=== PATIENT | female | born 1990 | race American Indian/Alaskan Native ===

== ENCOUNTER 2022-04-26 13:35 | Inpatient (IN) | payer OTHER, SELFPAY ==
[2022-04-26] MEDS ORDERED: hydrALAZINE 20 MG/ML VIAL SLOW IVP PRN ×2 (14:07→22:21)
[2022-04-26 14:55] VITALS: BMI 22.6
[2022-04-26 15:12] LABS: SARS-CoV-2 NAA Rapid Test DETECTED (NotDetected)
[2022-04-26] MEDS ORDERED: Acetaminophen/Codeine 30-300mg Tablet PO SCH (17:00)
[2022-04-26] MEDS ORDERED: Acetaminophen/Codeine 30-300mg Tablet PO PRN (22:21)
[2022-04-26] MEDS ORDERED: Butorphanol Tartrate 1 MG/ML VIAL SLOW IVP PRN (22:21)
[2022-04-26] MEDS ORDERED: Promethazine HCl 25 MG/ML VIAL IM PRN (22:21)
[2022-04-26] MEDS ORDERED: Ibuprofen 800 MG TAB PO PRN (22:21)
[2022-04-26] MEDS ORDERED: Lidocaine 1% (PF) 30 ML VIAL SC PRN (22:21)
[2022-04-26] MEDS ORDERED: HYDROcodone/Acetaminophen 5/325 mg Tablet PO PRN (22:21)
[2022-04-26] MEDS ORDERED: Ondansetron PF 4 MG/2 ML Vial IVP PRN (22:21)
[2022-04-26] MEDS ORDERED: NS w/ Oxytocin 30 units 500 ML IV SCH (22:30)
[2022-04-26 23:31] LABS: Hemoglobin 10.5 g/dL (12.0-15.5); Mean Corpuscular Hemoglobin 28.7 pg (27.0-33.0); Mean Corpuscular Volume 84.4 fl (81.6-98.3); Mean Platelet Volume 9.6 fl (7.4-10.4); Platelet Count 203 10x3/uL (150-450); RBC Distribution Width 13.1 % (11.5-14.5); Red Blood Cell (RBC) Count 3.66 10x6/uL (3.90-5.03); White Blood Cell (WBC) Count 3.7 10x3/uL (3.5-10.5)
[2022-04-26 23:55] LABS: Hep B Surf Ag Non-Reactive S/CO (NonReactive); Syphilis Antibody Nonreactive (Nonreactive); Syphilis Antibody Index 0.03 S/CO (<1.00 Non-Reactive)
[2022-04-26] MEDS: Lactated Ringer's 1,000 ML IV SCH (23:59)
[2022-04-27 00:18] LABS: HBSAg Index 0.22 S/CO (0-0.99)
[2022-04-27] MEDS ORDERED: Penicillin G Potassium 5 MILL.UNITS VIAL ONE (07:24)
[2022-04-27] MEDS: Lactated Ringer's 1,000 ML IV SCH ×2 (07:31→11:47)
[2022-04-27] MEDS ORDERED: Fentanyl 2 mcg/Bup 0.1% Cadd 100 ML ONE (09:09)
[2022-04-27] MEDS ORDERED: Lactated Ringer's 500 ML IV PRN (09:45)
[2022-04-27] MEDS ORDERED: Promethazine HCl 25 MG/ML VIAL IM PRN ×2 (09:45→19:32)
[2022-04-27] MEDS ORDERED: Ondansetron PF 4 MG/2 ML Vial IVP PRN ×2 (09:45→19:32)
[2022-04-27] MEDS ORDERED: Naloxone HCl 0.4 mg/ml Vial IVP PRN ×2 (09:45)
[2022-04-27] MEDS ORDERED: diphenhydrAMINE 50 MG/ML VIAL IVP PRN (09:45)
[2022-04-27] MEDS ORDERED: Moisturizing Cream (Eucerin) 113 GM JAR TOP PRN (09:45)
[2022-04-27] MEDS ORDERED: ePHEDrine Sulfate 50 MG/10 ML VIAL SLOW IVP PRN (09:45)
[2022-04-27] MEDS ORDERED: Communication Order-Pharmacy FS SCH (09:45)
[2022-04-27] MEDS ORDERED: Acetaminophen 325 MG TAB PO PRN (09:45)
[2022-04-27] MEDS ORDERED: Fentanyl 2 mcg/Bupivacaine 0.1% Cassette 100 ML EPIDURAL SCH (09:45)
[2022-04-27] MEDS ORDERED: Lidocaine 1% (PF) 30 ML VIAL SC PRN (10:49)
[2022-04-27] MEDS ORDERED: NS w/ Oxytocin 30 units 500 ML IV SCH ×2 (11:00→20:30)
[2022-04-27] MEDS ORDERED: Penicillin G Potassium 5 MILL.UNITS in Sodium Chloride 0.9% 100 ML IVPB SCH (11:00)
[2022-04-27] MEDS: Penicillin G 2.5 MILL.units 2.5 MILL.UNITS in Premix Bag 1 BAG IVPB SCH ×2 (11:29→19:44)
[2022-04-27] MEDS ORDERED: Milk Of Magnesia 30 ML UDCUP PO PRN (19:32)
[2022-04-27] MEDS ORDERED: Boostrix 0.5 ML (Tdap) VIAL IM ONE (19:32)
[2022-04-27] MEDS ORDERED: Bisacodyl 10 MG SUPP PR PRN (19:32)
[2022-04-27] MEDS ORDERED: Acetaminophen/Codeine 30-300mg Tablet PO PRN (19:32)
[2022-04-27] MEDS ORDERED: hydrALAZINE 20 MG/ML VIAL SLOW IVP PRN (19:32)
[2022-04-27] MEDS ORDERED: Lanolin Ointment 7 GM TUBE TOP PRN (19:32)
[2022-04-27] MEDS ORDERED: diphenhydrAMINE 25 MG CAP PO PRN (19:32)
[2022-04-27] MEDS ORDERED: Benzocaine-Menthol 82.5 ML CAN TOP PRN (19:32)
[2022-04-27] MEDS ORDERED: Zolpidem Tartrate 5 MG TAB PO PRN (19:32)
[2022-04-27] MEDS ORDERED: Preparation H Ointment 28 GM TUBE PR PRN (19:32)
[2022-04-27] MEDS ORDERED: Ferrous Sulfate 325 MG TAB PO SCH (20:30)
[2022-04-27] MEDS: Ibuprofen 800 MG TAB PO SCH (20:53)
[2022-04-27] MEDS: Docusate 100 MG CAP PO SCH (20:53)
[2022-04-28] MEDS: Acetaminophen/Codeine 30-300mg Tablet PO PRN ×2 (00:03→13:25)
[2022-04-28] MEDS: Ibuprofen 800 MG TAB PO SCH ×3 (06:14→21:45)
[2022-04-28] MEDS: Docusate 100 MG CAP PO SCH ×2 (13:24→21:45)
[2022-04-28] MEDS: Ferrous Sulfate 325 MG TAB PO SCH ×2 (13:24→21:45)
[2022-04-28] MEDS: Prenatal Vitamin 1 TAB PO SCH ×2 (13:24→13:26)
[2022-04-29] MEDS: Ibuprofen 800 MG TAB PO SCH ×2 (05:44→14:46)
[2022-04-29] MEDS: Ferrous Sulfate 325 MG TAB PO SCH (07:32)
[2022-04-29] MEDS: Prenatal Vitamin 1 TAB PO SCH (09:16)
[2022-04-29] MEDS: Docusate 100 MG CAP PO SCH (09:16)
[2022-04-29 13:38] VITALS: BP 90/55; TEMP 98.5
== END 2022-04-29 15:00 | disposition home or self-care (01) | DRG 805 ==
LOC: CSHLD/OP 13:35 → CSHLD 19:40 → CSHPP 04-27 14:30 → CSHANTE 04-28 14:30
PROVIDERS: ADMIT Obstetrics & Gynecology; ATTEND Obstetrics & Gynecology
PROC: 8E0ZXY6 Isolation (ICD-10-PCS; 2022-04-26)
PROC: 10E0XZZ Delivery of Products of Conception, External Approach (ICD-10-PCS; principal; 2022-04-27)
PROC: 0HQ9XZZ Repair Perineum Skin, External Approach (ICD-10-PCS; 2022-04-27)
DX: O36.5930 Maternal care for other known or suspected poor fetal growth, third trimester, not applicable or unspecified (principal); U07.1 COVID-19; Z37.0 Single live birth; O98.52 Other viral diseases complicating childbirth; O41.03X0 Oligohydramnios, third trimester, not applicable or unspecified; Z3A.38 38 weeks gestation of pregnancy; O99.824 Streptococcus B carrier state complicating childbirth; Z79.82 Long term (current) use of aspirin; Z79.899 Other long term (current) drug therapy; O70.0 First degree perineal laceration during delivery; D50.9 Iron deficiency anemia, unspecified; O90.81 Anemia of the puerperium
CPT/HCPCS: 36415; 51702; 76815; 85027; 86762; 86780; 86850; 86900; 86901; 87340; 88307; 99285; J2405; J2540; J2590; J7120; U0002